=== PATIENT | male | born 1990 | race African-American/Black ===

== ENCOUNTER 2018-04-03 11:50 | Emergency (ER) | payer OTHER ==
--- NOTE | 2018-04-03 13:54 | CT ---
CT HEAD WITHOUT CONTRAST: Date: 04/03/18 Multiple axial tomograms obtained through head without IV enhancement. INDICATION: Mental status change. History of head injury in 2016 with prior craniotomy. New onset seizures. FINDINGS: Comparison made to a head CT from 09/29/17. Prior exam revealed craniotomy changes on the right with a chronic subdural fluid collection along th e right convexity which measured up to 2.3 cm thickness. There was thickening and increased density o f the dura. On today's exam, thickening and increased density of the dura on the right is again noted. There cont inues to be a small subdural fluid collection of the right convexity measured at approximately 7.0 mm thickness today. Craniotomy changes are again noted on the right. There are other chronic changes wh ich appear stable, including ventriculomegaly and abnormal white matter lucency in the subcortical an d periventricular white matter of the right frontal lobe. Encephalomalacia in the right basal ganglia region is stable. No evidence of acute intraparenchymal hemorrhage. No mass effect. No evidence of a cute infarct. IMPRESSION: 1. Postop craniotomy changes involving the right cerebral hemisphere. There is thickening of the dur a over the right convexity and there is a persistent chronic subdural collection on the right now meghana suring up to 7.0 mm. 2. There are other chronic parenchymal changes including ventriculomegaly and abnormal white matter l ucency in the right cerebral hemisphere including prior insult to the basal ganglia. 3. No evidence of acute intracranial hemorrhage. POS: [facility]
[2018-04-03 14:17] LABS: #Eosinphils 0.2 thou/uL (0.0-0.7); #Lymphocytes 1.6 thou/uL (1.20-3.40); #Monocytes 0.5 thou/uL (0.11-0.59); #Neutrophils 3.5 thou/uL (1.40-6.50); %Basophils 0.4 % (0.0-1.0); %Eosinophils 2.6 % (0.0-10.0); %Lymphocytes 28.4 % (21.0-51.0); %Monocytes 8.7 % (0.0-10.0); %Neutrophils 59.9 % (42.0-75.0); Mean Corpuscular HGB CONC 33.8 g/dL (32.0-36.0); Mean Corpuscular Hemoglobin 30.4 pg (27.0-31.0); Mean Corpuscular Volume 89.9 fl (80.0-94.0); Mean Platelet Volume 9.4 fL (7.4-10.4); Platelet Count 161 thou/uL (130-400); RBC Distribution Width 12.7 % (11.5-14.5); Red Blood Cell (RBC) Count 4.94 mill/uL (4.70-6.10); White Blood Cell (WBC) Count 5.8 thou/uL (4.8-10.8)
[2018-04-03 14:35] LABS: ALT (SGPT) 18 U/L (8-55); AST (SGOT) 23 U/L (5-34); Albumin 4.4 g/dL (3.5-5.0); Alkaline Phosphatase 75 U/L (40-150); Anion Gap 14 mmol/L (10-20); BUN (Urea Nitrogen) 11 mg/dL (8.9-20.6); Bilirubin, Total 0.7 mg/dL (0.2-1.2); Calc. Creatinine Clearance 0 mL/min (70-130); Calcium 9.9 mg/dL (7.8-10.44); Carbon Dioxide 24 mmol/L (22-29); Chloride 108 mmol/L (98-107); Estimated GFR-MDRD Greater than 90; Globulin 3.3 g/dL (2.4-3.5); Glucose 83 mg/dL (70-105); Potassium 4.7 mmol/L (3.5-5.1); Protein, Total 7.7 g/dL (6.0-8.3); Sodium 141 mmol/L (136-145)
== END 2018-04-03 15:16 | disposition home or self-care (01) ==
LOC: ERS 11:50
DX: R53.1 Weakness (principal); R29.2 Abnormal reflex; F31.9 Bipolar disorder, unspecified; F17.210 Nicotine dependence, cigarettes, uncomplicated; Z79.899 Other long term (current) drug therapy
CPT/HCPCS: 70450; 80053; 85025

== ENCOUNTER 2018-04-14 07:42 | Outpatient (CLI) | payer OTHER ==
--- NOTE | 2018-04-14 10:29 | ULT ---
RENAL ULTARSOUND: COMPARISON: None. HISTORY: Acute kidney injury. TECHNIQUE: Multiplanar, bender scale, and color Doppler images were obtained in a renal ultrasound. FINDINGS: The kidneys are normal in echogenicity without hydronephrosis or calculi and measure 9.0 and 9.5 cm i n length on the right and left, respectively. Limited visualization of the urinary bladder is unremarkable. Both ureteral jets were visualized. IMPRESSION: Unremarkable renal ultrasound. POS: [facility]
--- NOTE | 2018-04-14 10:48 | MRI ---
MRI BRAIN WITHOUT CONTRAST: Multiplanar, multisequential imaging of the brain obtained. INDICATION: Partial complex seizure disorder. FINDINGS: Comparison is made to recent CT brain of 04/03/18 which shows right craniotomy changes. Chronic change s in the right frontal lobe and right basal ganglia and a persistent chronic right subdural hematoma along with ventriculomegaly. MRI is severely degraded due to motion artifact on all sequences. Ventriculomegaly is again seen and is stable from the recent CT. Craniotomy changes in the right tem poral frontal and parietal regions are again noted. There is volume loss in the right frontal lobe w ith surrounding gliosis and there is volume loss and gliosis in the right basal ganglia region consis tent with recent CT findings. A right subdural hematoma is again noted measuring approximately 7-8 mm, stable in appearance when co mpared to the recent CT. This does efface the right frontoparietal cortex. No significant midline s hift of the septum pellucidum. There is cortical volume loss. There is a focal area of volume loss with surrounding gliosis in the lateral right temporal lobe at the site of craniotomy change. This e xhibits low T1 and high T2 signal consistent with focal volume loss. IMPRESSION: The exam is degraded due to motion artifact. Findings correspond to recent CT of 04/03/18. Postop scrap kettle tender niotomy changes on the right are noted with areas of volume loss and gliosis in the right cerebral he misphere consistent with prior insult and surgery. There is a chronic subdural hematoma on the right which is unchanged in size and there is associated ventriculomegaly which is stable. POS: [facility]
== END 2018-04-14 07:43 | disposition home or self-care (01) ==
LOC: MRI 07:42
PROVIDERS: ATTEND Psychiatry & Neurology Neurology
DX: T14.90XA Injury, unspecified, initial encounter (principal); G40.209 Localization-related (focal) (partial) symptomatic epilepsy and epileptic syndromes with complex partial seizures, not intractable, without status epilepticus; S06.5X0A Traumatic subdural hemorrhage without loss of consciousness, initial encounter; G93.89 Other specified disorders of brain
CPT/HCPCS: 70551; 76770

== ENCOUNTER 2018-08-23 12:29 | Outpatient (CLI) | payer OTHER ==
--- NOTE | 2018-08-23 14:22 | CT ---
HEAD CT WITHOUT CONTRAST: History: Seizure disorder. Follow up of traumatic brain injury. Comparison: 04-03-18 FINDINGS: There is evidence of post-surgical change involving the right calvarium. Findings are similar to the previous exam. There is stable thickening of the right frontal temporal dura. Maximum dimension is 8 mm. Component o f chronic subdural is favored. Linear hypodensity likely represents dural calcification and thickenin g. There is some mass effect upon the right frontal and temporal lobe. There is encephalomalacia and gliotic change involving the right frontal and temporal lobe. 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 There is ex vacuo dilatation of the right lateral ventricle as well as the temporal horn and frontal horn of the lateral ventricle. Left cerebrum demonstrates preservation of cortical bender white matter differentiation. No acute parenchymal hemorrhage. Adequate aeration of the visualized sinuses and mastoid air cells. IMPRESSION: 1. Stable post-traumatic change. POS: [facility]
== END 2018-08-23 12:30 | disposition home or self-care (01) ==
LOC: CT 12:29
PROVIDERS: ATTEND Psychiatry & Neurology Neurology
DX: S06.9X9S Unspecified intracranial injury with loss of consciousness of unspecified duration, sequela (principal); G40.909 Epilepsy, unspecified, not intractable, without status epilepticus
CPT/HCPCS: 70450

== ENCOUNTER 2019-09-03 18:38 | Emergency (ER) | payer OTHER ==
[2019-09-03] MEDS ORDERED: Ibuprofen 800 MG TAB ONE (19:06)
[2019-09-03 19:34] LABS: #Basophils 0.1 thou/uL (0.0-0.2); #Lymphocytes 0.9 thou/uL (1.20-3.40); #Monocytes 0.6 thou/uL (0.11-0.59); #Neutrophils 3.7 thou/uL (1.40-6.50); %Basophils 2.5 % (0.0-1.0); %Eosinophils 0.9 % (0.0-10.0); %Lymphocytes 16.9 % (21.0-51.0); %Monocytes 11.5 % (0.0-10.0); %Neutrophils 68.1 % (42.0-75.0); Hemoglobin 14.1 g/dL (14.0-18.0); Mean Corpuscular HGB CONC 33.8 g/dL (32.0-36.0); Mean Corpuscular Hemoglobin 30.3 pg (27.0-31.0); Mean Corpuscular Volume 89.8 fL (78.0-98.0); Mean Platelet Volume 11.1 fL (7.4-10.4); Platelet Count 181 thou/uL (130-400); RBC Distribution Width 12.5 % (11.5-14.5); Red Blood Cell (RBC) Count 4.65 mill/uL (4.70-6.10); White Blood Cell (WBC) Count 5.4 thou/uL (4.8-10.8)
[2019-09-03 19:41] LABS: ALT (SGPT) 28 U/L (8-55); AST (SGOT) 33 U/L (5-34); Albumin 4.2 g/dL (3.5-5.0); Alkaline Phosphatase 56 U/L (40-110); Anion Gap 16 mmol/L (10-20); BUN (Urea Nitrogen) 13 mg/dL (8.9-20.6); Bilirubin, Total 0.5 mg/dL (0.2-1.2); Calc. Creatinine Clearance 0 mL/min (70-130); Calcium 9.7 mg/dL (7.8-10.44); Carbon Dioxide 24 mmol/L (22-29); Chloride 107 mmol/L (98-107); Estimated GFR-MDRD 67; Globulin 3.7 g/dL (2.4-3.5); Glucose 98 mg/dL (70-105); Potassium 4.8 mmol/L (3.5-5.1); Protein, Total 7.9 g/dL (6.0-8.3); Sodium 142 mmol/L (136-145)
--- NOTE | 2019-09-03 19:59 | RAD ---
EXAM: AP upright and sitting lateral: HISTORY: Fever COMPARISON: 08/31/2016 FINDINGS: Lung terry are clear. Vascular markings are normal. Elevated right hemidiaphragm is stable. Heart and mediastinum appear unremarkable. Osseous structures are unremarkable. IMPRESSION: No acute finding
--- NOTE | 2019-09-03 20:26 | CT ---
CT HEAD WITHOUT CONTRAST: Indications: Headache, fever. Comparison: 08-23-18, 04-03-18 FINDINGS: Post op changes on the right again noted. There is thickening and calcification of the right dura whi ch has a stable appearance to prior study. There may be a small chronic extraaxial fluid collection a long the right subarachnoid space which is stable. There is ventriculomegaly and volume loss in the r ight cerebral hemisphere which appears stable. No evidence of hemorrhage, mass, or acute process. Sin uses are clear. There is a mucous retention cyst in the right sphenoid sinus which is unchanged in ap pearance. IMPRESSION: Stable findings. No acute process. POS: [facility]
[2019-09-03 20:46] LABS: Bilirubin Small (Negative); Blood, Urine Negative (Negative); Clarity Hazy (Clear); Glucose, Urine (Dipstick) Negative (Negative); Leukocyte Negative (Negative); Nitrite Negative (Negative); Protein, Urine (Dipstick) 30 mg/dL (Neg-Trace); Urobilinogen > or = 8.0 mg/dL (Less than 2)
[2019-09-03 20:48] LABS: Bacteria/HPF 1+ HPF (None Seen); Mucous/LPF 1+ LPF (<2+); RBC/HPF None Seen HPF (0-3); Squamous Epithelial 0-3 HPF (0-3); WBC/HPF None Seen HPF (0-3)
== END 2019-09-03 21:07 | disposition home or self-care (01) ==
LOC: SCSER 18:38
DX: B34.9 Viral infection, unspecified (principal); F31.9 Bipolar disorder, unspecified; F17.210 Nicotine dependence, cigarettes, uncomplicated; Z79.899 Other long term (current) drug therapy
CPT/HCPCS: 70450; 71046; 80053; 81003; 81015; 83605; 85025; 87081; 87430; 87804; 96360

== ENCOUNTER 2020-03-14 09:54 | Outpatient (CLI) | payer OTHER | END 2020-03-14 09:55 | disposition home or self-care (01) | PROVIDERS: ATTEND Physician Assistant | DX: I69.191 Dysphagia following nontraumatic intracerebral hemorrhage (principal); R63.3 Feeding difficulties | CPT/HCPCS: 74230 ==

== ENCOUNTER 2022-11-09 19:00 | Outpatient (CLI) | payer OTHER | END 2022-11-09 19:01 | disposition home or self-care (01) | LOC: SLEEPLAB 19:00 | PROVIDERS: ATTEND Family Medicine | DX: F51.9 Sleep disorder not due to a substance or known physiological condition, unspecified (principal); G47.33 Obstructive sleep apnea (adult) (pediatric); G31.84 Mild cognitive impairment of uncertain or unknown etiology; R53.83 Other fatigue; K21.9 Gastro-esophageal reflux disease without esophagitis; F31.9 Bipolar disorder, unspecified; R06.83 Snoring; G47.10 Hypersomnia, unspecified; G47.00 Insomnia, unspecified; S09.90XA Unspecified injury of head, initial encounter | CPT/HCPCS: 95810 ==